=== PATIENT | male | born 1980 | race Caucasian/White ===

== ENCOUNTER 2017-02-26 00:13 | Emergency (ER) | payer SELFPAY ==
[~2017-02-26] VITALS: Ht 182.9 cm; Wt 96.0 kg
[2017-02-26] MEDS ORDERED: LIDOCAINE HCL 1% 20ML VIAL (Pyxis) INJ MC ONE (03:30)
[2017-02-26] MEDS ORDERED: TETANUS, DIPHTHERIA, PERTUSSIS VAC/PF 0.5ML (>7YR OLD) IM ONE (03:30)
[2017-02-26] MEDS ORDERED: BACITRACIN ZINC OINT UDPKT TOP ONE (03:30)
[2017-02-26 03:51] VITALS: BP 123/81
== END 2017-02-26 05:04 | disposition home or self-care (01) ==
LOC: ER 00:14
DX: S81.011A Laceration without foreign body, right knee, initial encounter (principal); W31.2XXA Contact with powered woodworking and forming machines, initial encounter; Y93.H2 Activity, gardening and landscaping; Y92.017 Garden or yard in single-family (private) house as the place of occurrence of the external cause; R03.0 Elevated blood-pressure reading, without diagnosis of hypertension; F17.210 Nicotine dependence, cigarettes, uncomplicated
CPT/HCPCS: 12002; 90471; 90715; 99283; J3490; Z7610